=== PATIENT | female | born 1960 ===

== ENCOUNTER 2024-05-12 05:38 | Day surgery (SDC) | payer BC ==
[2024-05-11 10:46] VITALS: BMI 23.0
[2024-05-12] MEDS ORDERED: PROPOFOL 60 ML ONE (06:43)
[2024-05-12] MEDS ORDERED: Lidocaine 2% MPF 10 ML AMP (For Epidural Use) ONE (06:43)
[2024-05-12] MEDS ORDERED: PHENYLEPHRINE-NS 100 MCG/ML 10 ML SYRINGE ONE (07:28)
== END 2024-05-12 08:15 | disposition home or self-care (01) ==
LOC: CSHSDC 05:38 → EDSEX 10:30
PROVIDERS: ATTEND Surgery
DX: Z12.11 Encounter for screening for malignant neoplasm of colon (principal); D12.0 Benign neoplasm of cecum; D12.3 Benign neoplasm of transverse colon; K64.1 Second degree hemorrhoids; I10 Essential (primary) hypertension
CPT/HCPCS: 88305; J2704